=== PATIENT | male | born 1960 | race Caucasian/White ===

== ENCOUNTER → 2021-07-14 | Outpatient (CLI) | payer MEDICARE, OTHER | LOC: HEART 5 14:42 | DX: R06.02 Shortness of breath (principal) | CPT/HCPCS: 94060; 94729 ==

== ENCOUNTER → 2021-08-30 | Outpatient (CLI) | payer MEDICARE, OTHER | LOC: RAD 08-05 09:30 | DX: J98.6 Disorders of diaphragm (principal) | CPT/HCPCS: 76000 ==